=== PATIENT | female | born 1980 | race Caucasian/White ===

== ENCOUNTER 2017-05-13 18:07 | Outpatient (CLI) | payer OTHER ==
[~2017-05-13] VITALS: Ht 165.1 cm; Wt 101.0 kg
[~2017-05-13 18:07] MED LIST: NITR-58 PO; ONDA4TAB35 PO
[2017-05-13] MEDS ORDERED: PRENAT PO (18:23)
[2017-05-13] MEDS ORDERED: FER325 PO (18:23)
[2017-05-13 18:24] VITALS: BP 108/65; PULSE 88; RESP 18; Ht 165.1 cm; Wt 101.0 kg
--- NOTE | 2017-05-13 19:09 | RADRPT ---
PROCEDURE: US OB biophysical profile. CLINICAL INDICATION: Evaluate well-being TECHNIQUE: Multiple sonographic images of the pelvis were obtained. The images were reviewed on a PACS workstation. COMPARISON: None FINDINGS: There is a single viable intrauterine gestation. There is a normal amount of amniotic fluid with an SHELDON = 11.5 . Cardiac activity is present with 142 beats per minute There is a vertex presentation. The placenta is 5 ml. Biophysical profile: movement 2/2 tone 2/2. breathing 2/2 SHELDON 2/2 Total 04/14 IMPRESSION: 1. Normal biophysical profile of 04/14. 2. Single viable intrauterine gestation in cephalic presentation. 3. Fundal placenta without evidence of previa or abruption. RPTAT:AAJJ Physician Jarred Date Time Electronically viewed and signed by Physician Jarred on 05/13/2017 19:09 /
--- NOTE | 2017-05-13 19:48 | PN ---
Triage Information Date/Time Reason for visit: DFM Weeks of Gestation 37 weeks /Para Diabetes: none Hypertention: none Objective Vital Signs Date Time Temp Pulse Resp B/P Pulse Ox O2 Delivery O2 Flow Rate FiO2 05/13/17 18:24 99.1 88 18 108/65 97 Room Air Heart Rate: 130's Heart Rate Comments Category I Contractions: None Results/Medications Imaging Results BPP 8 SHELDON 11.5 Disposition: Discharge Assessment/Plan While being monitored, patient feels the baby move well. D/C home. NATALIYA MOFFETT MD May 13, 2017 19:48
--- NOTE | 2017-05-13 20:21 | TRIAGE ---
OB Triage Datetime Report Generated by CPN: 05/13/2017 20:20 Datetime: 05/13/2017 19:40 Stage of : OB Triage Datetime: 05/13/2017 18:53 Stage of : OB Triage Maternal Assessment Level of Consciousness: Fully Conscious Labor Evaluation Frequency: 1uc/hr Monitor Mode: External Duration (sec)2399: 50 Quality: Mild Resting Tone [place]: Relaxed Heart Rate FHR Baseline Rate: 135 Monitor Mode: External US Variability: Moderate 6-25 bpm Accelerations: 15X15 Decelerations: None Category: Category I Pain Assessment Pain Scale: 0 Pain Goal: 3 Vaginal Exam Membrane Status: Intact Vaginal Bleeding: None Datetime: 05/13/2017 18:21 Assessment Type: Triage Maternal Assessment Level of Consciousness: Fully Conscious DTR's/Clonus: DTRs 2+; No Clonus Headache: Denies Blurred Vision: No Respiratory Effort: Unlabored; Regular Rhythm; Equal Expansion Breath Sounds, Left: Clear and Equal Breath Sounds, Right: Clear and Equal Nausea/Vomiting: Denies RUQ Epigastric Pain: Denies Lower Extremities Edema: None Degree: None Upper Extremities Edema: None Degree: None Facial Edema: None Fall Risk Assessment History of Falling: (0) No Secondary Diagnosis: (0) No Ambulatory Aid: (0) Bedrest/Nurse Assist IV Therapy: (0) No Gait: (0) Normal/Bedrest/Immobile Mental Status: (0) Oriented to Own Ability Fall Score: 0 Fall Risk Score Definition: No Risk: No action required Datetime: 05/13/2017 18:20 Time of Arrival: 05/13/2017 17:49 EGA: 37.0 Arrived By: Ambulatory Arrived From: Office Chief Complaint: pt here for DFM Movement: Present Contractions: Denies/Absent Rupture of Membranes: Denies Vaginal Bleeding: None Vaginal Discharge: Denies Recent Sexual Intercouse: Denies Abdominal Trauma: Not Applicable Patient Complaints: None Provider Notified: BETINA Initial Plan: NST/BPP Datetime: 05/13/2017 18:13 Monitor Mode: External Monitor Mode: External US
== END 2017-05-13 20:00 | disposition home or self-care (01) ==
LOC: L-D 18:07 → OBT 18:07 → L-D 18:08 → OBT 20:00
PROVIDERS: ATTEND Obstetrics & Gynecology
DX: O36.8130 Decreased fetal movements, third trimester, not applicable or unspecified (principal); Z3A.37 37 weeks gestation of pregnancy
CPT/HCPCS: 76818; Z7500; G0463

== ENCOUNTER 2017-06-04 09:41 | Inpatient (IN) | payer OTHER ==
[~2017-06-04] VITALS: Ht 165.1 cm; Wt 103.9 kg
[~2017-06-04 09:41] MED LIST changes: +FER325 PO; -NITR-58 PO; -ONDA4TAB35 PO; +PRENAT PO
[2017-06-04 10:12] VITALS: Ht 165.1 cm; Wt 103.9 kg
[2017-06-04 10:13] VITALS: BP 110/70; PULSE 82; RESP 20
--- NOTE | 2017-06-04 11:50 | RADRPT ---
PROCEDURE: OB ultrasound for biophysical profile CLINICAL INDICATION: Post dates TECHNIQUE: Multiple sonographic images of the pelvis were obtained. Transabdominal views of the g ravid uterus are available for review. The images were reviewed on a PACS workstation. COMPARISON: None FINDINGS: breathing movement = 2/2 tone = 2/2 motion = 2/2 SHELDON = 2/2 SHELDON = 10.6 cm Single live intrauterine with cardiac activity of 144 bpm. position is cephal ic. The placenta is fundal. IMPRESSION: 1. Single live intrauterine gestation. 2. Biophysical profile = 8/8. 3. SHELDON = 10.6 cm. RPTAT: HH .Mikayla Marrero MD, MD Date Time Electronically viewed and signed by .Mikayla Marrero MD, on 06/04/2017 11:50 .G/
--- NOTE | 2017-06-04 11:52 | RADRPT ---
PROCEDURE: US OB. CLINICAL INDICATION: Post dates TECHNIQUE: Multiple sonographic images of the pelvis were obtained. Transabdominal imaging only w as performed. The images were reviewed on a PACS workstation. COMPARISON: No prior studies are available for comparison. FINDINGS: There is a single live intrauterine gestation. Cardiac activity is present with 143 beats per minut e. position is cephalic. Measurements were made in order to determine age. The results are as follows: BPD = 9.49 cm HC = 33.43 cm AC = 35.90 cm FL = 7.75 cm. Estimated gestational age of approximately 39 weeks 1 day. The estimated date of delivery is 06/10/2017. The EFW = 3785 g, 61.9 %ile. The placenta is fundal. There is no evidence for an abruption or placenta previa. IMPRESSION: 1. Single live intrauterine gestation of approximately 39 weeks 1 day, by ultrasound criteria. 2. The estimated date of delivery is 06/10/2017. 3. The estimated weight is 3785 g, 61.9 %ile. RPTAT: HH .Mikayla Marrero MD, Date Time Electronically viewed and signed by .Mikayla Marrero MD, on 06/04/2017 11:52 .G/
--- NOTE | 2017-06-04 15:23 | TRIAGE ---
OB Triage Datetime Report Generated by CPN: 06/04/2017 15:23 Datetime: 06/04/2017 15:08 Headache: Denies Blurred Vision: No RUQ Epigastric Pain: Denies Facial Edema: None Labor Evaluation Frequency: none Pattern: Normal: <= 5 Contractions in 10 Minutes Heart Rate FHR Baseline Rate: 140 FHR Baseline Changes: No Baseline Change Variability: Moderate 6-25 bpm Accelerations: 15X15 Decelerations: None Category: Category I Pain Presence: None/Denies Vaginal Exam Membrane Status: Intact Datetime: 06/04/2017 14:10 Labor Evaluation Frequency: none Pattern: Normal: <= 5 Contractions in 10 Minutes Heart Rate FHR Baseline Rate: 140 Monitor Mode: External US FHR Baseline Changes: No Baseline Change Variability: Moderate 6-25 bpm Accelerations: 15X15 Decelerations: None Category: Category I Pain Presence: None/Denies Datetime: 06/04/2017 12:30 Maternal Assessment Level of Consciousness: Fully Conscious DTR's/Clonus: DTRs 2+ Headache: Denies Blurred Vision: No Nausea/Vomiting: Denies RUQ Epigastric Pain: Denies Facial Edema: None Labor Evaluation Frequency: 0 Monitor Mode: External Duration (sec)2399: 0 Resting Tone [place]: Relaxed Heart Rate FHR Baseline Rate: 140 Monitor Mode: External US Variability: Moderate 6-25 bpm Accelerations: 15X15 Decelerations: Variable Category: Category II Pain Assessment Pain Scale: 0 Pain Presence: None/Denies Pain Type: N/A Pain Goal: 3 Vaginal Exam Membrane Status: Intact Datetime: 06/04/2017 11:30 Maternal Assessment Level of Consciousness: Fully Conscious DTR's/Clonus: DTRs 2+ Headache: Denies Blurred Vision: No Nausea/Vomiting: Denies RUQ Epigastric Pain: Denies Facial Edema: None Labor Evaluation Frequency: 0 Monitor Mode: External Duration (sec)2399: 0 Resting Tone [place]: Relaxed Heart Rate FHR Baseline Rate: 150 Monitor Mode: External US Variability: Moderate 6-25 bpm Accelerations: 15X15 Decelerations: Variable Category: Category I Pain Presence: None/Denies Datetime: 06/04/2017 10:30 Labor Evaluation Frequency: 10-15 Monitor Mode: External Duration (sec)2399: 5-10 Quality: Mild Resting Tone [place]: Relaxed Heart Rate FHR Baseline Rate: 145 Monitor Mode: External US Variability: Moderate 6-25 bpm Accelerations: 15X15 Decelerations: Variable Category: Category II Comments: GIVEN COLD WATER TO GET BABY TO MOVE Pain Presence: None/Denies Datetime: 06/04/2017 10:10 Time of Arrival: 06/04/2017 09:39 EGA: 40.1 Arrived By: Ambulatory Arrived From: Home Chief Complaint: POST DATES DR SENT FOR NST AND BPP Movement: Present Contractions: Denies/Absent Rupture of Membranes: Denies Vaginal Bleeding: None Vaginal Discharge: Denies Recent Sexual Intercouse: Denies Abdominal Trauma: Not Applicable Patient Complaints: None Time Provider Notified: 06/04/2017 09:39 Provider Notified: Delshad Initial Plan: NST, BPP, SHELDON, R/O INDUCTION Maternal Assessment Level of Consciousness: Fully Conscious DTR's/Clonus: DTRs 2+ Headache: Denies Blurred Vision: No Nausea/Vomiting: Denies RUQ Epigastric Pain: Denies Facial Edema: None Labor Evaluation Frequency: 0 Monitor Mode: External Resting Tone [place]: Relaxed Monitor Mode: External US Variability: Moderate 6-25 bpm Accelerations: 10X10 Decelerations: Variable Category: Category II Comments: pt here from clinic, overdue, wants nst and bpp, denies any history, last baby 7 yrs ago, last ate this a.m. at 8am, states "baby's been moving all over " Pain Assessment Pain Scale: 0 Pain Presence: None/Denies Pain Type: N/A Pain Goal: 0 Datetime: 05/13/2017 18:21 Fall Risk Assessment Fall Score: 0 Fall Risk Score Definition: No Risk: No action required Datetime: 05/13/2017 18:20 EGA: 37.0
[2017-06-04] MEDS ORDERED: OXYTOCIN 30 UNITS/LR 500 ML IV PRN (16:30)
[2017-06-04] MEDS ORDERED: BUTORPHANOL 2 MG INJ IV PRN (16:30)
[2017-06-04] MEDS ORDERED: OXYTOCIN 30 UNITS/LR 500 ML IV SCH ×2 (16:30)
[2017-06-04] MEDS ORDERED: IBUPROFEN 600 MG TAB PO PRN (16:30)
[2017-06-04] MEDS ORDERED: METHYLERGONOVINE 0.2 MG INJ IM PRN (16:30)
[2017-06-04] MEDS ORDERED: MISOPROSTOL 200 MCG TAB PR PRN (16:30)
[2017-06-04] MEDS ORDERED: LIDOCAINE 1% (MPF) 30 ML INJ INJ PRN (16:30)
[2017-06-04] MEDS ORDERED: CARBOPROST 250 MCG INJ IM PRN (16:30)
[2017-06-04] MEDS: LACTATED RINGER'S 1,000 ML IV SCH ×2 (16:40→22:12)
[2017-06-04] MEDS: MISOPROSTOL 25 MCG CAPSULE PO SCH ×2 (16:52→21:10)
[2017-06-04 17:32] LABS: BASOPHIL # 0.1 10^3/ul (0.0-0.1); BASOPHILS % 0.5 % (0.0-2.0); EOSINOPHILS # 0.3 10^3/ul (0.0-0.5); EOSINOPHILS % 1.9 % (0.0-7.0); HEMATOCRIT 38.1 % (37.0-47.0); HEMOGLOBIN 12.5 g/dl (12.0-16.0); LYMPHOCYTES # 1.9 10^3/ul (0.8-2.9); LYMPHOCYTES % 13.9 % (15.0-51.0); MEAN CORPUSCULAR HEMOGLOBIN 29.4 pg (29.0-33.0); MEAN CORPUSCULAR HGB CONC 32.8 g/dl (32.0-37.0); MEAN CORPUSCULAR VOLUME 89.6 fl (82.0-101.0); MEAN PLATELET VOLUME 9.2 fl (7.4-10.4); MONOCYTE # 1.2 10^3/ul (0.3-0.9); MONOCYTES % 8.8 % (0.0-11.0); NEUTROPHIL # 9.9 10^3/ul (1.6-7.5); PLATELET COUNT 285 10^3/UL (140-415); RED BLOOD COUNT 4.25 10^6/ul (4.20-5.40); RED CELL DISTRIBUTION WIDTH 16.6 % (11.5-14.5); WHITE BLOOD COUNT 13.5 10^3/ul (4.8-10.8)
[2017-06-04 17:49] LABS: INR 0.99; PROTIME 13.1 Sec (12.2-14.2)
[2017-06-04 17:50] LABS: PARTIAL THROMBOPLASTIN TIME 31.3 Sec (25.0-35.0)
--- NOTE | 2017-06-04 22:47 | HP ---
Date/Time of Note Date/Time of Note DATE: 06/04/17 TIME: 22:44 OB - History Hx of Present Chief Complaint: post date Estimated Due Date: Jun 03, 2017 : 6 Para: 2 Spontaneous : 3 Therapeutic : 0 Care: Good Care Ultrasounds: Normal mid trimester US Obstetrical Complications: None Medical Complications: None Past Family/Social History * Past Medical, Surgical, Family and Obstetric Histories reviewed from chart. GBS Status: Negative OB Admission Exam Vital Signs Vital Signs Vital Signs Date Time Temp Pulse Resp B/P Pulse Ox O2 Delivery O2 Flow Rate FiO2 06/04/17 10:13 98.4 82 20 110/70 Room Air Physical Exam HEENT: WNL Heart: Rhythm Normal Lungs: Clear, Equal Abdomen: WNL Extremities: Normal Reflexes: Normal Cervical Dilatation: None Effacement: 25% Station: -2 Membranes: Intact Heart Rate: 140's Accelerations: Accelerations Present Varibility: Moderate Last 72 hours Lab Results CBC & BMP 06/04/17 16:20 OB Assessment/Plan Reason for admission: induction of labor Plan: Induction Induction Method: per Misoprostol Protocol NATALIYA MOFFETT MD Jun 04, 2017 22:47
[2017-06-04] MEDS ORDERED: LACTATED RINGER'S 1,000 ML IV PRN (23:00)
[2017-06-05] MEDS: LACTATED RINGER'S 1,000 ML IV SCH (06:40)
--- NOTE | 2017-06-05 10:00 | LDN ---
Date/Time of Note Date/Time of Note DATE: 06/05/17 TIME: 09:59 Delivery Summary Placenta Delivered: Spontaneously Meconium: none Episiotomy: No Perineal laceration: 2 Laceration repair: 2nd degree perineal laceration repaired with 3-0 chromic and bilateral labial lacerations repaired with 4-0 chromic Anesthesia type: Local Estimated blood loss: 400 Sponge & Needle done & correct: Yes All needle counts correct: Yes Any foreign bodies felt in the: No Problems: Delivery Information Sex Sex: female Apgars 1 Minute: 9 5 Minute: 9 Suctioning Nose & mouth suctioned at sean: Yes Umbilical Cord Umbilical cord with: 3 Vessels Cord presentations: no nuchal cord Cord Blood was obtained: Yes SELINA HERRERA Jun 05, 2017 10:00
[2017-06-05 11:45] VITALS: BP 118/71; PULSE 65; RESP 18
[2017-06-05] MEDS ORDERED: LACTATED RINGER'S 1,000 ML IV* SCH (11:49)
[2017-06-05] MEDS ORDERED: DIBUCAINE 1% 30 GM OINT PR PRN (12:00)
[2017-06-05] MEDS ORDERED: CARBOPROST 250 MCG INJ IM PRN (12:00)
[2017-06-05] MEDS ORDERED: MISOPROSTOL 200 MCG TAB PR PRN (12:00)
[2017-06-05] MEDS ORDERED: BENZOCAINE 20% 56 ML SPRAY TOP PRN (12:00)
[2017-06-05] MEDS ORDERED: HYDROCODONE/APAP (5/325) TAB PO PRN (12:00)
[2017-06-05] MEDS ORDERED: OXYTOCIN 30 UNITS/LR 500 ML IV PRN (12:00)
[2017-06-05] MEDS: IBUPROFEN 600 MG TAB PO SCH ×2 (12:00→17:45)
[2017-06-05] MEDS ORDERED: ACETAMINOPHEN 325 MG TAB PO PRN (12:00)
[2017-06-05] MEDS ORDERED: METHYLERGONOVINE 0.2 MG INJ IM PRN (12:00)
[2017-06-05] MEDS ORDERED: WITCH HAZEL/GLYCERIN PAD PR PRN (12:00)
[2017-06-05 20:00] VITALS: BP 119/67; PULSE 78; RESP 18
[2017-06-05] MEDS: SENNA/DOCUSATE NA (8.6MG/50MG) TAB PO SCH (21:00)
[2017-06-06] VITALS: BP 97/50; PULSE 72; RESP 18
[2017-06-06 04:00] VITALS: BP 124/71; PULSE 78; RESP 18
[2017-06-06] MEDS: IBUPROFEN 600 MG TAB PO SCH ×5 (05:36→23:36)
[2017-06-06 08:30] VITALS: BP 98/52; PULSE 71; RESP 16
[2017-06-06 08:45] LABS: BASOPHILS % 0.2 % (0.0-2.0); EOSINOPHILS # 0.3 10^3/ul (0.0-0.5); EOSINOPHILS % 1.8 % (0.0-7.0); HEMATOCRIT 30.9 % (37.0-47.0); LYMPHOCYTES # 2.8 10^3/ul (0.8-2.9); LYMPHOCYTES % 19.2 % (15.0-51.0); MEAN CORPUSCULAR HEMOGLOBIN 28.8 pg (29.0-33.0); MEAN CORPUSCULAR HGB CONC 32.4 g/dl (32.0-37.0); MEAN PLATELET VOLUME 8.7 fl (7.4-10.4); MONOCYTE # 1.4 10^3/ul (0.3-0.9); MONOCYTES % 9.7 % (0.0-11.0); NEUTROPHIL # 9.8 10^3/ul (1.6-7.5); NEUTROPHILS % 67.1 % (39.0-77.0); PLATELET COUNT 223 10^3/UL (140-415); RED BLOOD COUNT 3.47 10^6/ul (4.20-5.40); RED CELL DISTRIBUTION WIDTH 16.7 % (11.5-14.5); WHITE BLOOD COUNT 14.6 10^3/ul (4.8-10.8)
[2017-06-06] MEDS: SENNA/DOCUSATE NA (8.6MG/50MG) TAB PO SCH ×2 (09:00→21:46)
[2017-06-06] MEDS ORDERED: INFLUENZA VIRUS VACCINE 0.5 ML SYG IM* ONE (14:00)
[2017-06-06 16:00] VITALS: BP 107/59; PULSE 87
[2017-06-06 20:15] VITALS: BP 98/58; PULSE 79; RESP 18
--- NOTE | 2017-06-06 21:17 | PN ---
Date/Time of Note Date/Time of Note DATE: 06/06/17 TIME: 21:15 OB Subjective Subjective Subjective June 06, 2017 Post day 1 Doing Well Afebrile Ambulatory Chest Clear Breasts are soft , Nipples are intact Abdomen is soft Fundus is firm Moderate amount of lochia 2ed degree laceration of perineum is healing No calf tenderness Laboratory Tests Test 06/06/17 08:35 White Blood Count 14.610^3/ul Red Blood Count 3.4710^6/ul Hemoglobin 10.0g/dl Hematocrit 30.9% Mean Corpuscular Volume 89.0fl Mean Corpuscular Hemoglobin 28.8pg Mean Corpuscular Hemoglobin Concent 32.4g/dl Red Cell Distribution Width 16.7% Platelet Count 85691^3/UL Mean Platelet Volume 8.7fl Neutrophils % 67.1% Lymphocytes % 19.2% Monocytes % 9.7% Eosinophils % 1.8% Basophils % 0.2% Nucleated Red Blood Cells % 0.0/100WBC Neutrophils # 9.810^3/ul Lymphocytes # 2.810^3/ul Monocytes # 1.410^3/ul Eosinophils # 0.310^3/ul Basophils # 0.010^3/ul Nucleated Red Blood Cells # 0.010^3/ul Current Medications Medications (Trade) Dose Ordered Sig/Jani Route PRN Reason Start Time Stop Time Status Last Admin Dose Admin Lactated Ringer's (Lr) 1,000 ml @ 125 mls/hr Q8H IV 06/04/17 16:04 06/05/17 11:53 DC 06/05/17 06:40 Misoprostol (Cytotec 25 Mcg Capsule) 50 mcg Q4 PO 06/04/17 17:00 06/05/17 00:32 DC 06/04/17 21:10 Butorphanol Tartrate (Stadol) 2 mg Q2H PRN IV PAIN 06/04/17 16:30 06/05/17 11:53 DC Lidocaine 30 ml 30 ml ONCE PRN INJ EPISIOTOMY/TEARING 06/04/17 16:30 06/05/17 11:53 DC Oxytocin/Lactated Ringer's 500 ml @ 125 mls/hr ONCE -MAY REPEAT X1 IV 06/04/17 16:30 06/05/17 11:53 DC 06/05/17 10:16 Oxytocin/Lactated Ringer's 500 ml @ 125 mls/hr ONCE IV 06/04/17 16:30 06/05/17 11:53 DC 06/05/17 10:17 Ibuprofen 600 mg 600 mg ONCE PRN PO Mild Pain (Pain Score 1-3) 06/04/17 16:30 06/05/17 11:53 DC 06/05/17 11:07 Lactated Ringer's 1,000 ml @ 2,000 mls/hr Q30M PRN IV PRE-EPIDURAL BOLUS 06/04/17 23:00 06/05/17 11:53 DC Oxytocin/Lactated Ringer's 500 ml @ 0 mls/hr ONCE PRN IV For Hemorrhage Management 06/04/17 16:30 06/05/17 11:53 DC Methylergonovine Maleate (Methergine) 0.2 mg ONCE PRN IM VAGINAL BLEEDING 06/04/17 16:30 06/05/17 11:53 DC Carboprost Tromethamine (Hemabate) 250 mcg ONCE PRN IM VAGINAL BLEEDING 06/04/17 16:30 06/05/17 11:53 DC Misoprostol 1000 mcg 1,000 mcg ONCE PRN DC VAGINAL BLEEDING 06/04/17 16:30 06/05/17 11:53 DC Lactated Ringer's (Lr) 1,000 ml @ 125 mls/hr Q8H IV* 06/05/17 11:49 Ibuprofen (Motrin) 600 mg Q6 PO 06/05/17 12:00 06/06/17 17:58 Acetaminophen (Tylenol Tab) 650 mg Q4H PRN PO PAIN LEVEL 1-5 06/05/17 12:00 Acetaminophen/ Hydrocodone Bitart (Sunray (5/325)) 1 tab Q4H PRN PO PAIN LEVEL 1-5 06/05/17 12:00 Senna/Docusate Sodium (Senokot-S) 1 tab BID PO 06/05/17 21:00 Witch Sangeetha/ Glycerin (Tucks Pads) 1 pad BEDSIDE MEDICATION PRN DC HEMORRHOID/EPISIOTMY PAIN 06/05/17 12:00 06/05/17 13:05 Benzocaine (Dermoplast Coats) 1 spray BEDSIDE MEDICATION PRN TOP HEMORRHOID/EPISIOTMY PAIN 06/05/17 12:00 06/05/17 13:05 Dibucaine (Nupercainal) 1 applic BEDSIDE MEDICATION PRN DC HEMORRHOID/EPISIOTMY PAIN 06/05/17 12:00 Diphtheria/ Tetanus/Acell Pertussis 0.5 ml 0.5 ml ONCE ONCE IM* 06/07/17 09:00 06/07/17 09:01 Oxytocin/Lactated Ringer's 500 ml @ 0 mls/hr ONCE PRN IV For Hemorrhage Management 06/05/17 12:00 Methylergonovine Maleate (Methergine) 0.2 mg ONCE PRN IM VAGINAL BLEEDING 06/05/17 12:00 Carboprost Tromethamine (Hemabate) 250 mcg ONCE PRN IM VAGINAL BLEEDING 06/05/17 12:00 Misoprostol (Cytotec) 1,000 mcg ONCE PRN DC VAGINAL BLEEDING 06/05/17 12:00 Influenza Virus Vaccine (Fluzone) 0.5 ml ONCE ONCE IM* 06/06/17 14:00 06/06/17 14:01 DC 06/06/17 12:21 No ankle edema New born is doing well, Breast feeding SANA KRUSE MD Jun 06, 2017 21:17
[2017-06-07 04:15] VITALS: BP 108/57; PULSE 77; RESP 18
[2017-06-07] MEDS: IBUPROFEN 600 MG TAB PO SCH ×2 (05:39→11:28)
[2017-06-07 08:30] VITALS: BP 113/67; PULSE 71; RESP 18
[2017-06-07] MEDS ORDERED: DIPHTH/TET/ACEL PERTUSS (ADULT) 0.5 ML VIAL IM* ONE (09:00)
[2017-06-07] MEDS: SENNA/DOCUSATE NA (8.6MG/50MG) TAB PO SCH (09:00)
--- NOTE | 2017-06-07 15:00 | DS ---
Date/Time of Note Date/Time of Note DATE: 06/07/17 TIME: 15:00 Obstetrical Discharge Record Final Diagnosis Final Diagnosis: Term delivered Vaginal Delivery Obstetrical Delivery: Spontaneous Complications Induction: Yes Condition on Discharge Physical Assessment Voiding: Yes Bowel Movement: Yes Breast: Soft, non-tender, Filling Fundus: Firm Calf Tenderness: No Patient Condition: Stable NATALIYA MOFFETT MD Jun 07, 2017 15:00
== END 2017-06-07 17:00 | disposition home or self-care (01) | DRG 775 ==
LOC: OBT 09:41 → L-D 09:41 → OBT 15:08 → L-D 15:32 → PP1 06-05 11:41
PROVIDERS: ADMIT Obstetrics & Gynecology; ATTEND Obstetrics & Gynecology
PROC: 10E0XZZ Delivery of Products of Conception, External Approach (ICD-10-PCS; principal; 2017-06-05)
PROC: 0KQM0ZZ Repair Perineum Muscle, Open Approach (ICD-10-PCS; 2017-06-05)
DX: O70.1 Second degree perineal laceration during delivery (principal); Z37.0 Single live birth; Z3A.40 40 weeks gestation of pregnancy
CPT/HCPCS: 76815; 76818; 85025; 85610; 85730; 86592; 86900; 86901; 90686; 90715; G0463; J2590; J7120

== ENCOUNTER 2019-02-02 17:47 | Outpatient (CLI) | payer OTHER ==
[~2019-02-02] VITALS: Ht 165.1 cm; Wt 103.2 kg
[2019-02-02 17:58] VITALS: BP 120/69; PULSE 81; RESP 18
[2019-02-02 17:59] VITALS: Ht 165.1 cm; Wt 103.2 kg
--- NOTE | 2019-02-02 20:23 | PN ---
Triage Information Date/Time Reason for visit: antepartum testing Weeks of Gestation 35 weeks /Para Diabetes: gestational Diabetes management: diet controlled Hypertention: none Objective Vital Signs Date Temp Pulse Resp B/P (MAP) Pulse Ox O2 O2 Flow FiO2 Time Delivery Rate 02/02/19 98.3 81 18 120/69 Room Air 17:58 (86) Heart Rate: 120's Heart Rate Comments Reactive Results/Medications Results 24 hrs Laboratory Tests Test 02/02/19 18:03 Bedside Glucose 64 L Imaging Results BPP 04/14 Disposition: Discharge Assessment/Plan Follow up antepartum testing on 02/04/2019. NATALIYA MOFFETT MD February 02, 2019 20:23
--- NOTE | 2019-02-02 20:55 | TRIAGE ---
OB Triage Datetime Report Generated by CPN: 02/02/2019 20:55 Datetime: 02/02/2019 20:18 Labor Evaluation Frequency: OCCASIONAL Monitor Mode: External Duration (sec)2399: 60-90 Quality: Mild Resting Tone [place]: Relaxed Contraction Comments: PT DENIES FEELING UC'S Contraction Comments: TOCO REMOVED Heart Rate FHR Baseline Rate: 135 Monitor Mode: External US Variability: Moderate 6-25 bpm Accelerations: 15X15 Decelerations: None Category: Category I Comments: US REMOVED Datetime: 02/02/2019 20:00 Labor Evaluation Frequency: OCCASIONAL Monitor Mode: External Duration (sec)2399: 50-90 Quality: Mild Resting Tone [place]: Relaxed Contraction Comments: PT DENIES FEELING UC'S Heart Rate FHR Baseline Rate: 135 Monitor Mode: External US Variability: Moderate 6-25 bpm Accelerations: 15X15 Decelerations: None Category: Category I Datetime: 02/02/2019 17:54 Stage of : OB Triage Assessment Type: Triage Time of Arrival: 02/02/2019 17:31 EGA: 35.2 Arrived By: Ambulatory Arrived From: Office Chief Complaint: PT. SENT IN FOR NST/BPP FOR GDM Movement: Present Contractions: Denies/Absent Rupture of Membranes: Denies Vaginal Bleeding: None Vaginal Discharge: Denies Recent Sexual Intercouse: Denies Abdominal Trauma: Not Applicable Patient Complaints: None Initial Plan: NST/BPP/BG Maternal Assessment Level of Consciousness: Fully Conscious DTR's/Clonus: DTRs 2+; No Clonus Headache: Denies Blurred Vision: No Respiratory Effort: Unlabored; Regular Rhythm; Equal Expansion Breath Sounds, Left: Clear and Equal Breath Sounds, Right: Clear and Equal Nausea/Vomiting: Denies RUQ Epigastric Pain: Denies Lower Extremities Edema: None Degree: None Upper Extremities Edema: None Degree: None Facial Edema: None Fall Risk Assessment History of Falling: (0) No Secondary Diagnosis: (0) No Ambulatory Aid: (0) Bedrest/Nurse Assist IV Therapy: (0) No Gait: (0) Normal/Bedrest/Immobile Mental Status: (0) Oriented to Own Ability Fall Score: 0 Fall Risk Score Definition: No Risk: No action required Datetime: 02/02/2019 17:52 Monitor Mode: External Monitor Mode: External US
== END 2019-02-02 20:27 | disposition home or self-care (01) ==
LOC: OBT 17:47 → L-D 17:48 → OBT 20:27
PROVIDERS: ATTEND Obstetrics & Gynecology
DX: O24.419 Gestational diabetes mellitus in pregnancy, unspecified control (principal); O09.523 Supervision of elderly multigravida, third trimester; Z3A.35 35 weeks gestation of pregnancy
CPT/HCPCS: 76818; 82962; Z7500; G0463

== ENCOUNTER 2019-02-04 08:57 | Outpatient (CLI) | payer OTHER ==
[~2019-02-04] VITALS: Ht 165.1 cm; Wt 103.3 kg
[2019-02-04 09:12] VITALS: Ht 165.1 cm; Wt 103.3 kg
[2019-02-04 09:13] VITALS: BP 107/63; PULSE 83
--- NOTE | 2019-02-04 11:11 | TRIAGE ---
OB Triage Datetime Report Generated by CPN: 02/04/2019 11:11 Datetime: 02/04/2019 10:18 Stage of : OB Triage Datetime: 02/04/2019 10:09 Stage of : OB Triage Datetime: 02/04/2019 09:54 Labor Evaluation Frequency: X1 Monitor Mode: External Duration (sec)2399: 50 Quality: Mild Pattern: Normal: <= 5 Contractions in 10 Minutes Resting Tone [place]: Relaxed Heart Rate FHR Baseline Rate: 135 Monitor Mode: External US Variability: Moderate 6-25 bpm Accelerations: 10X10 Decelerations: None Category: Category I Pain Assessment Pain Scale: 0 Pain Presence: None/Denies Pain Type: N/A Pain Goal: 3 Pain Relief Measures: Comfort Measures Datetime: 02/04/2019 09:05 Stage of : OB Triage Assessment Type: Triage Maternal Assessment Level of Consciousness: Fully Conscious DTR's/Clonus: DTRs 2+; No Clonus Headache: Denies Blurred Vision: No Respiratory Effort: Unlabored; Regular Rhythm; Equal Expansion Breath Sounds, Left: Clear and Equal Breath Sounds, Right: Clear and Equal Nausea/Vomiting: Denies RUQ Epigastric Pain: Denies Facial Edema: None Temperature Route: Axillary Bedside Blood Glucose: 132 Fall Risk Assessment History of Falling: (0) No Secondary Diagnosis: (0) No Ambulatory Aid: (0) Bedrest/Nurse Assist IV Therapy: (0) No Gait: (0) Normal/Bedrest/Immobile Mental Status: (0) Oriented to Own Ability Fall Score: 0 Fall Risk Score Definition: No Risk: No action required Labor Evaluation Frequency: 0 Monitor Mode: External Pattern: Normal: <= 5 Contractions in 10 Minutes Resting Tone [place]: Relaxed Heart Rate FHR Baseline Rate: 135 Monitor Mode: External US Pain Assessment Pain Scale: 0 Pain Presence: None/Denies Pain Type: N/A Pain Goal: 3 Pain Relief Measures: Comfort Measures Datetime: 02/04/2019 09:04 Time of Arrival: 02/04/2019 08:50 EGA: 35.4 Arrived By: Ambulatory Arrived From: Home Chief Complaint: BIWEEKLY NST/BPP GDM, DENIES LEAKING, BLEEDING OR UC'S Movement: Present Contractions: Denies/Absent Rupture of Membranes: Denies Vaginal Bleeding: None Vaginal Discharge: Denies Recent Sexual Intercouse: Denies Abdominal Trauma: Not Applicable Patient Complaints: None Time Provider Notified: 02/04/2019 10:09 Provider Notified: DELSHAD Initial Plan: MONITOR, BPP Datetime: 02/02/2019 17:54 EGA: 35.2 Fall Score: 0 Fall Risk Score Definition: No Risk: No action required
--- NOTE | 2019-02-07 04:26 | PN ---
Triage Information Date/Time late entry for service rendered on 02/04/19 Reason for visit: NST and SHELDON, SHELDON on 02/02/19 was 9.0 Weeks of Gestation 35w4d /Para Diabetes: gestational Diabetes management: diet controlled Hypertention: none Objective Vital Signs Date Temp Pulse Resp B/P (MAP) Pulse Ox O2 O2 Flow FiO2 Time Delivery Rate 02/04/19 98.0 83 107/63 09:13 (78) Heart Rate: 150's Heart Rate Comments CAT I Contractions: None Results/Medications Imaging Results BPP 8/8 SHELDON 10.1 Disposition: Discharge Assessment/Plan A IUP 35w4d A1DM P RTH biweekly antepartum test NINO SMITH MD Feb 07, 2019 04:26
== END 2019-02-04 10:30 | disposition home or self-care (01) ==
LOC: OBT 08:57 → L-D 09:01 → OBT 10:30
PROVIDERS: ATTEND Obstetrics & Gynecology
DX: O24.419 Gestational diabetes mellitus in pregnancy, unspecified control (principal); O09.523 Supervision of elderly multigravida, third trimester; Z3A.35 35 weeks gestation of pregnancy
CPT/HCPCS: 76818; 82962; Z7500; G0463

== ENCOUNTER 2019-02-07 09:02 | Outpatient (CLI) | payer OTHER ==
[~2019-02-07] VITALS: Ht 165.1 cm; Wt 103.8 kg
[2019-02-07 09:15] VITALS: BP 101/61; PULSE 83; RESP 19; Ht 165.1 cm; Wt 103.8 kg
--- NOTE | 2019-02-07 10:43 | TRIAGE ---
OB Triage Datetime Report Generated by CPN: 02/07/2019 10:43 Datetime: 02/07/2019 09:57 Labor Evaluation Frequency: occas Monitor Mode: External Duration (sec)2399: 60-80 Quality: Mild Pattern: Normal: <= 5 Contractions in 10 Minutes Resting Tone [place]: Relaxed Heart Rate FHR Baseline Rate: 135 Monitor Mode: External US FHR Baseline Changes: No Baseline Change Variability: Moderate 6-25 bpm Accelerations: 15X15 Decelerations: None Category: Category I Datetime: 02/07/2019 09:20 Assessment Type: Triage Maternal Assessment Level of Consciousness: Fully Conscious DTR's/Clonus: DTRs 2+; No Clonus Headache: Denies Blurred Vision: No Respiratory Effort: Unlabored; Regular Rhythm; Equal Expansion Breath Sounds, Left: Clear and Equal Breath Sounds, Right: Clear and Equal Nausea/Vomiting: Denies RUQ Epigastric Pain: Denies Lower Extremities Edema: None Degree: None Upper Extremities Edema: None Degree: None Facial Edema: None Fall Risk Assessment History of Falling: (0) No Secondary Diagnosis: (0) No Ambulatory Aid: (0) Bedrest/Nurse Assist IV Therapy: (0) No Gait: (0) Normal/Bedrest/Immobile Mental Status: (0) Oriented to Own Ability Fall Score: 0 Fall Risk Score Definition: No Risk: No action required Labor Evaluation Frequency: 0 Monitor Mode: External Pattern: Normal: <= 5 Contractions in 10 Minutes Resting Tone [place]: Relaxed Heart Rate FHR Baseline Rate: 135 Monitor Mode: External US Variability: Moderate 6-25 bpm Accelerations: 15X15 Decelerations: None Category: Category I Datetime: 02/07/2019 09:19 Time of Arrival: 02/07/2019 08:56 EGA: 36.0 Arrived By: Ambulatory Arrived From: Home Chief Complaint: GDM Movement: Present Contractions: Denies/Absent Rupture of Membranes: Denies Vaginal Bleeding: None Vaginal Discharge: Denies Recent Sexual Intercouse: Denies Abdominal Trauma: Not Applicable Patient Complaints: Other Time Provider Notified: 02/07/2019 10:28 Provider Notified: dr scott Initial Plan: NST Datetime: 02/04/2019 09:05 Fall Score: 0 Fall Risk Score Definition: No Risk: No action required Datetime: 02/04/2019 09:04 EGA: 35.4 Datetime: 02/02/2019 17:54 EGA: 35.2 Fall Score: 0 Fall Risk Score Definition: No Risk: No action required
--- NOTE | 2019-02-07 15:54 | PN ---
Triage Information Date/Time Reason for visit: Patient here for NST and BPP Weeks of Gestation Patient is a 38-year-old 6 para 3 at 36 weeks of gestation with estimated date of delivery March 07, 2019 Patient is gestational diabetic diet controlled here for NST and BPP She reports positive movement, denies vaginal bleeding and leaking fluid, denies uterine contractions /Para 6 para 3 Diabetes: gestational (GDM A1) Diabetes management: diet controlled Hypertention: none Objective Vital Signs Date Temp Pulse Resp B/P (MAP) Pulse Ox O2 O2 Flow FiO2 Time Delivery Rate 02/07/19 98.0 83 19 101/61 Room Air 09:15 (74) Heart Rate: 140's Heart Rate Comments heart rate tracing category 1 Contractions: None Results/Medications Imaging Results PROCEDURE: US OB. CLINICAL INDICATION: Size and dates , gestational diabetes TECHNIQUE: Multiple sonographic images of the pelvis and gravid uterus were o btained. The images were reviewed on a PACS workstation. COMPARISON: US PELVIS 02/04/2019 FINDINGS: Gestation: Single live intrauterine gestation. Cardiac activity: 165 beats per minute. Presentation: Vertex. Placenta: Location: Left lateral Appearance: No previa or abruption. Measurements: BPD = 8.9 cm, 35 weeks and 6 days HC = 32 cm, 36 weeks and 0 days AC = 33.2 cm, 37 weeks and 1 day FL = 7.0 cm, 36 weeks and 0 days Gestational Age: AUA estimated gestational age: 36 weeks 2 days LMP estimated gestational age: 36 weeks 0 days AUA estimated date of delivery: 03/05/19 The EFW = 2978 g, 68%ile based on LMP age. RPTAT: AA IMPRESSION: Single live intrauterine gestation of 36 weeks 2 days by ultrasound criteria. .Fausto Braden MD, MD Date Time Electronically viewed and signed by .Fausto Braden MD, on 02/07/2019 10:14 .S/ CC: HERBERT ESPARZA MD [phone] PROCEDURE: US OB biophysical profile. CLINICAL INDICATION: decreased movements, gestational diabetes TECHNIQUE: Multiple sonographic images of the pelvis were obtained. The images were reviewed on a PACS workstation. COMPARISON: US PELVIS 02/04/2019 FINDINGS: There is a single live intrauterine gestation. Cardiac activity is present with 166 beats per minute. There is a vertex presentation. The placenta is left lateral. There is no evidence of placental abruption. SHELDON = 9.2 cm. Biophysical profile: movement 2/2 tone 2/2. breathing 2/2 SHELDON 2/2 Total 04/14 RPTAT: AA . IMPRESSION: Normal biophysical profile. . .Fausto Braden MD, MD Date Time Electronically viewed and signed by .Fausto Braden MD, MD on 02/07/2019 10:15 .S/ CC: NATALIYA MOFFETT MD [phone] Disposition: Discharge Assessment/Plan kick count instructions were given Labor precautions were given Patient instructed to return in 48 hours for repeat NST and BPP Patient instructed to follow-up with [facility] in 1 to 2 days HERBERT ESPARZA MD Feb 07, 2019 15:54
== END 2019-02-07 10:35 | disposition home or self-care (01) ==
LOC: OBT 09:02 → L-D 09:02 → OBT 10:35
PROVIDERS: ATTEND Obstetrics & Gynecology
DX: O36.8330 Maternal care for abnormalities of the fetal heart rate or rhythm, third trimester, not applicable or unspecified (principal); O24.419 Gestational diabetes mellitus in pregnancy, unspecified control; O09.523 Supervision of elderly multigravida, third trimester; Z3A.36 36 weeks gestation of pregnancy
CPT/HCPCS: 76815; 76818; Z7500; G0463

== ENCOUNTER 2019-02-10 08:58 | Outpatient (CLI) | payer OTHER ==
[~2019-02-10] VITALS: Ht 165.1 cm; Wt 104.9 kg
[2019-02-10 09:06] VITALS: Ht 165.1 cm; Wt 104.9 kg
[2019-02-10 09:07] VITALS: BP 112/56
--- NOTE | 2019-02-10 10:45 | TRIAGE ---
OB Triage Datetime Report Generated by CPN: 02/10/2019 10:45 Datetime: 02/10/2019 09:11 EGA: 36.3 Datetime: 02/10/2019 09:10 Stage of : OB Triage Assessment Type: Triage Maternal Assessment Level of Consciousness: Fully Conscious DTR's/Clonus: DTRs 2+; No Clonus Headache: Denies Blurred Vision: No Respiratory Effort: Unlabored; Regular Rhythm; Equal Expansion Breath Sounds, Left: Clear and Equal Breath Sounds, Right: Clear and Equal Nausea/Vomiting: Denies RUQ Epigastric Pain: Denies Lower Extremities Edema: None Degree: None Upper Extremities Edema: None Degree: None Facial Edema: None Fall Risk Assessment History of Falling: (0) No Secondary Diagnosis: (0) No Ambulatory Aid: (0) Bedrest/Nurse Assist IV Therapy: (0) No Gait: (0) Normal/Bedrest/Immobile Mental Status: (0) Oriented to Own Ability Fall Score: 0 Fall Risk Score Definition: No Risk: No action required Pain Assessment Pain Scale: 0 Pain Presence: None/Denies Pain Type: N/A Datetime: 02/10/2019 09:08 Time of Arrival: 02/10/2019 08:47 EGA: 36.3 Arrived By: Ambulatory Arrived From: Home Chief Complaint: nst bpp f/up for gdm Movement: Present Contractions: Denies/Absent Rupture of Membranes: Denies Vaginal Bleeding: None Vaginal Discharge: Denies Recent Sexual Intercouse: Denies Abdominal Trauma: Not Applicable Patient Complaints: None Time Provider Notified: 02/10/2019 10:35 Provider Notified: dr. scott Initial Plan: nst bpp Datetime: 02/07/2019 09:20 Fall Score: 0 Fall Risk Score Definition: No Risk: No action required Datetime: 02/07/2019 09:19 EGA: 36.0 Datetime: 02/04/2019 09:05 Fall Score: 0 Fall Risk Score Definition: No Risk: No action required Datetime: 02/04/2019 09:04 EGA: 35.4 Datetime: 02/02/2019 17:54 EGA: 35.2 Fall Score: 0 Fall Risk Score Definition: No Risk: No action required
--- NOTE | 2019-02-26 12:47 | PN ---
Triage Information Date/Time Date of service 02/10/2019 Reason for visit: antepartum testing Weeks of Gestation 36 weeks /Para Diabetes: gestational Diabetes management: diet controlled Hypertention: none Objective Heart Rate: 120's Heart Rate Comments Reactive Results/Medications Imaging Results [facility] 04/14 Disposition: Discharge NATALIYA MOFFETT MD Feb 26, 2019 12:47
== END 2019-02-10 10:50 | disposition home or self-care (01) ==
LOC: OBT 08:58 → L-D 09:02 → OBT 10:50
PROVIDERS: ATTEND Obstetrics & Gynecology
DX: O24.419 Gestational diabetes mellitus in pregnancy, unspecified control (principal); O09.523 Supervision of elderly multigravida, third trimester; Z3A.36 36 weeks gestation of pregnancy
CPT/HCPCS: 76818; Z7500; G0463

== ENCOUNTER 2019-03-06 13:30 | Inpatient (IN) | payer OTHER ==
[~2019-03-06] VITALS: Ht 165.1 cm; Wt 107.4 kg
[2019-03-06 14:11] VITALS: BMI 39.4
[2019-03-06] MEDS ORDERED: LACTATED RINGER'S 1,000 ML IV PRN (14:13)
[2019-03-06 14:24] VITALS: Ht 165.1 cm; Wt 107.4 kg
[2019-03-06 14:26] VITALS: BP 117/68; PULSE 79; RESP 18
[2019-03-06] MEDS ORDERED: OXYTOCIN 30 UNITS/LR 500 ML IV SCH ×3 (14:30→16:30)
[2019-03-06] MEDS ORDERED: MISOPROSTOL 200 MCG TAB PR PRN (14:30)
[2019-03-06] MEDS ORDERED: METHYLERGONOVINE 0.2 MG INJ IM PRN (14:30)
[2019-03-06] MEDS ORDERED: OXYTOCIN 30 UNITS/LR 500 ML IV PRN (14:30)
[2019-03-06] MEDS ORDERED: CARBOPROST 250 MCG INJ IM PRN (14:30)
[2019-03-06] MEDS ORDERED: LIDOCAINE 1% (MPF) 30 ML INJ INJ PRN (14:30)
[2019-03-06] MEDS: LACTATED RINGER'S 1,000 ML IV SCH ×2 (15:01→17:17)
--- NOTE | 2019-03-06 20:13 | HP ---
Date/Time of Note Date/Time of Note DATE: 03/06/19 TIME: 20:08 OB - History Hx of Present Chief Complaint: induction of labor Estimated Due Date: Mar 07, 2019 : 7 Para: 3 Spontaneous : 3 Therapeutic : 1 Care: Good Care Ultrasounds: Normal mid trimester US Obstetrical Complications: Gestational Diabetes Medical Complications: None Past Family/Social History * Past Medical, Surgical, Family and Obstetric Histories reviewed from chart. GBS Status: Negative OB Admission Exam Vital Signs Vital Signs Vital Signs Date Temp Pulse Resp B/P (MAP) Pulse Ox O2 O2 Flow FiO2 Time Delivery Rate 03/06/19 97.9 79 18 117/68 Room Air 14:26 (84) Physical Exam HEENT: WNL Heart: Rhythm Normal Lungs: Clear, Equal Abdomen: WNL Extremities: Normal Reflexes: Normal Cervical Dilatation: 2cm Effacement: 50% Station: -1 Membranes: Intact Heart Rate: 130's Accelerations: Accelerations Present Decelerations: No Decelerations Varibility: Moderate Last 72 hourBlood Glucose Bedside Glucose - 72 Hours Test 03/06/19 19:37 Bedside Glucose 115 mg/dL (70-220) Last 72 hours Lab Results CBC & BMP 03/06/19 14:55 OB Assessment/Plan Reason for admission: induction of labor Plan: Induction Induction Method: per Pitocin Protocol NATALIYA MOFFETT MD Mar 06, 2019 20:13
[2019-03-06] MEDS ORDERED: FENTAnyl 2MCG/ML-ROPIV 0.2% 100 ML ONE (20:35)
--- NOTE | 2019-03-06 20:44 | PREAC ---
Date/Time of Note Date/Time of Note DATE: 03/06/19 TIME: 20:43 Anesthesia Eval and Record Evaluation Time Pre-Procedure Interview DATE: 03/06/19 TIME: 20:43 Age 38 Sex female NPO: 8 hrs Preoperative diagnosis Labor Pain Planned procedure Labor Epidural Past Medical History Past Medical History: Includes : : (5), Para: (3), Gestational age: (39), Gestational diabetes Surgery & Anesthesia Issues No known issue Meds Anticoagulation: No Beta Richard within 24 hr: No Reason Beta Richard not given: Pt. not on B-Richard Reported Medications Ferrous Sulfate* (Ferrous Sulfate*) 325 Mg Tabec, 325 MG PO DAILY, TAB 05/13/17 Multivit/Min/Fol Ac/Iron/Pren* ( S*) 1 Tab Tab, 1 TAB PO DAILY, TAB 05/13/17 Current Medications Lactated Ringer's 1,000 ml @ 125 mls/hr Q8H IV Last administered on 03/06/19at 17:17; Admin Dose 125 MLS/HR; Start 03/06/19 at 14:13 Lidocaine (Xylocaine 1% (Mpf)) 30 ml ONCE PRN INJ .EPISIOTOMY; Start 03/06/19 at 14:30 Oxytocin/Lactated Ringer's 500 ml @ 500 mls/hr ONCE POST IV ; Start 03/06/19 at 14:30 Oxytocin/Lactated Ringer's 500 ml @ 125 mls/hr POST IV ; Start 03/06/19 at 14:30 Lactated Ringer's 1,000 ml @ 2,000 mls/hr Q30M PRN IV .ANESTHESIA Last administered on 03/06/19at 20:24; Admin Dose 2,000 MLS/HR; Start 03/06/19 at 14:13 Oxytocin/Lactated Ringer's 500 ml @ 0 mls/hr ONCE PRN IV .VAGINAL BLEEDING Last administered on 03/06/19at 17:28; Admin Dose 1 MLS/HR; Start 03/06/19 at 14:30 Methylergonovine Maleate (Methergine) 0.2 mg ONCE PRN IM .VAGINAL BLEEDING; Start 03/06/19 at 14:30 Carboprost Tromethamine (Hemabate) 250 mcg ONCE PRN IM .VAGINAL BLEEDING; Start 03/06/19 at 14:30 Misoprostol (Cytotec) 1,000 mcg ONCE PRN CA .VAGINAL BLEEDING; Start 03/06/19 at 14:30 Oxytocin/Lactated Ringer's 500 ml @ 0 mls/hr FOR INDUCTION IV ; Start 03/06/19 at 16:30 Meds reviewed: Yes Allergies Coded Allergies: No Known Drug Allergies (Verified Allergy, Unknown, 02/10/19) Allergies Reviewed: Yes Labs/Studies Labs Reviewed: Reviewed by anesthesiologist Result Diagram: 03/06/19 1455 03/06/19 1455 Laboratory Tests 03/06/19 14:55 Blood Bank Test 03/06/19 14:55 Antibody Screen NEGATIVE Blood Type A POSITIVE Rh Immune Globulin Candidate NO test: Positive Studies: ECG (n/a), CXR (n/a) Pre-procedure Exam Last vitals Vital Signs Date Temp Pulse Resp B/P (MAP) Pulse Ox O2 O2 Flow FiO2 Time Delivery Rate 03/06/19 97.9 79 18 117/68 Room Air 14:26 (84) Airway: Adequate mouth opening, Adequate thyromental dist Mallampati: Mallampati II Teeth: Normal Lung: Normal Heart: Normal ASA Physical Status ASA physical status: 2 Emergency: None Planned Anesthetic Neuraxial: Epidural Planned Pain Management Epidural Pre-operative Attestations Prior to commencing anesthesia and surgery, the patient was re-evaluated, there was verification of: *The patient's identity *The results of appropriate recent lab work and preoperative vital signs *The above evaluation not changing prior to induction *Anesthetic plan, risk benefits, alternative and complications discussed with patient/family; questions answered; patient/family understands, accepts and wishes to proceed. ZO POWER MD Mar 06, 2019 20:44
--- NOTE | 2019-03-06 20:45 | PAC ---
Date/Time of Note Date/Time of Note DATE: 03/06/19 TIME: 20:45 Post-Anesthesia Notes Post-Anesthesia Note Last documented vital signs Vital Signs Date Temp Pulse Resp B/P (MAP) Pulse Ox O2 O2 Flow FiO2 Time Delivery Rate 03/06/19 97.9 79 18 117/68 98 Room Air 20:46 (84) Activity: WNL Respiratory function: WNL Cardiovascular function: WNL Mental status: Baseline Pain reasonably controlled: Yes Hydration appropriate: Yes Nausea/Vomiting absent: Yes ZO POWER MD Mar 06, 2019 20:45
[2019-03-06] MEDS ORDERED: FENTAnyl 2MCG/ML-ROPIV 0.2% 100 ML BAG EPI SCH (21:00)
[2019-03-06] MEDS ORDERED: NALOXONE (0.4 MG/ML) INJ IV PRN (21:00)
[2019-03-06] MEDS: LACTATED RINGER'S 1,000 ML IV* SCH (23:25)
--- NOTE | 2019-03-06 23:56 | LDN ---
Date/Time of Note Date/Time of Note DATE: 03/06/19 TIME: 23:55 Delivery Summary Weeks of Gestation 39 weeks and 6 days Placenta Delivered: Spontaneously Meconium: none Episiotomy: No Laceration repair: Second degree perineal laceration repaired with 3-0 Vicryl. Anesthesia type: Epidural Estimated blood loss: 200 Sponge & Needle done & correct: Yes All needle counts correct: Yes Any foreign bodies felt in the: No Infant Delivery Information Sex Sex: male Apgars 1 Minute: 9 5 Minute: 9 Suctioning Nose & mouth suctioned at sean: No Delee suction performed: No Umbilical Cord Umbilical cord with: 3 Vessels Cord presentations: no nuchal cord Cord Blood was obtained: Yes Mother & Baby Disposition Disposition Mom & Baby to Maternity; Good: Yes NATALIYA MOFFETT MD Mar 06, 2019 23:56
[2019-03-07] VITALS (7 sets, daily range): BP systolic 108–129; BP diastolic 61–83; PULSE 68–83; RESP 17–19
[2019-03-07] MEDS ORDERED: METHYLERGONOVINE 0.2 MG INJ IM PRN (02:30)
[2019-03-07] MEDS ORDERED: ACETAMINOPHEN 325 MG TAB PO PRN (02:30)
[2019-03-07] MEDS ORDERED: DIBUCAINE 1% 30 GM OINT TOP PRN (02:30)
[2019-03-07] MEDS ORDERED: HYDROCODONE/APAP (5/325) TAB PO PRN (02:30)
[2019-03-07] MEDS ORDERED: OXYTOCIN 30 UNITS/LR 500 ML IV PRN (02:30)
[2019-03-07] MEDS ORDERED: CARBOPROST 250 MCG INJ IM PRN (02:30)
[2019-03-07] MEDS ORDERED: MISOPROSTOL 200 MCG TAB PR PRN (02:30)
[2019-03-07] MEDS ORDERED: BENZOCAINE 20% 56 ML SPRAY TOP PRN (02:30)
[2019-03-07] MEDS ORDERED: WITCH HAZEL/GLYCERIN PAD PR PRN (02:30)
[2019-03-07] MEDS: LACTATED RINGER'S 1,000 ML IV* SCH ×2 (03:35→18:21)
[2019-03-07] MEDS: IBUPROFEN 600 MG TAB PO SCH ×4 (05:41→23:34)
[2019-03-07] MEDS: SENNA/DOCUSATE NA (8.6MG/50MG) TAB PO SCH ×2 (08:57→21:20)
--- NOTE | 2019-03-07 19:59 | QN ---
Documentation Comment No complaint Afebrile VSS Fundus firm Lochia scant PPD #1 Stable Continue present care. NATALIYA MOFFETT MD Mar 07, 2019 19:59
[2019-03-08] MEDS: LACTATED RINGER'S 1,000 ML IV* SCH ×3 (02:21→20:52)
[2019-03-08 04:00] VITALS: BP 126/66; PULSE 80; RESP 18
[2019-03-08] MEDS: IBUPROFEN 600 MG TAB PO SCH ×3 (05:51→18:57)
[2019-03-08 08:00] VITALS: BP 115/65; PULSE 65; RESP 19
[2019-03-08] MEDS: SENNA/DOCUSATE NA (8.6MG/50MG) TAB PO SCH (08:36)
[2019-03-08] MEDS ORDERED: DIPHTH/TET/ACEL PERTUSS (ADULT) 0.5 ML VIAL IM* ONE (09:00)
[2019-03-08 17:12] VITALS: BP 112/65; PULSE 71; RESP 18
[2019-03-08 19:30] VITALS: BP 121/79; PULSE 78; RESP 18
--- NOTE | 2019-03-08 20:05 | DS ---
Date/Time of Note Date/Time of Note DATE: 03/08/19 TIME: 20:04 Obstetrical Discharge Record Final Diagnosis Final Diagnosis: Term delivered Vaginal Delivery Obstetrical Delivery: Spontaneous Complications Gestational Diabetes Induction: Yes Condition on Discharge Physical Assessment Voiding: Yes Bowel Movement: Yes Breast: Soft, non-tender, Filling Fundus: Firm Calf Tenderness: No Patient Condition: Stable NATALIYA MOFFETT MD Mar 08, 2019 20:05
--- NOTE | 2019-03-09 20:55 | DELSUM ---
Delivery Summary A-C Datetime Report Generated by CPN: 03/09/2019 20:55 DELIVERY PERSONNEL Sql Consultant: Rodas, Teri MATERNAL INFORMATION Delivery Anesthesia: Local; Epidural Medications in Delivery: Pitocin 30units in 500mL LR Delivery QBL (ml): 200 Placenta Cultured: No Maternal Complications: None Other Maternal Complications: GDM-diet controlled LABOR SUMMARY EDC: 03/07/2019 00:00 No. Babies in Womb: 1 Attempted: No Labor Anesthesia: Epidural LABOR INFORMATION Reason for Induction: Maternal Diabetes Onset of Labor: 03/06/2019 19:27 Complete Dilatation: 03/06/2019 23:09 Group B Beta Strep: Negative Antibiotics # of Doses: 0 Steroids Given: None Reason Steroids Not Administered: Not Applicable MEMBRANES Membranes Rupture Method: Artificial Rupture of Membranes: 03/06/2019 19:27 Length of Rupture (hr): 4.12 Amniotic Fluid Color: Clear Amniotic Fluid Amount: Moderate Amniotic Fluid Odor: Normal STAGES OF LABOR Stage 1 hr: 3 Stage 1 min: 42 Stage 2 hr: 0 Stage 2 min: 25 Stage 3 hr: 0 Stage 3 min: 3 Total Time in Labor hr: 4 Total Time in Labor min: 10 VAGINAL DELIVERY Episiotomy: None Laceration Extension: Second Degree Laceration Type: Perineal Laceration Repair: Yes Initial Vag Sponge Count: 10 Final Vag Sponge Count: 10 Initial Vag Sharps Count: 1 Final Vag Sharps Count: 2 Sponge Count Correct: Yes Sharps Count Correct: Yes Count Comment: 1 suture added 15 instruments BABY A INFORMATION Delivery Date/Time: 03/06/2019 23:34 Method of Delivery: Vaginal Born in Route : No : N/A Forceps: N/A Vacuum Extraction: N/A Shoulder Dystocia : No SHOULDER DYSTOCIA BABY A Infant Delivery Date/Time: 03/06/2019 23:34 PRESENTATION/POSITION BABY A Presentation: Cephalic Cephalic Presentation: Vertex Breech Presentation: N/A PLACENTA INFORMATION BABY A Placenta Delivery Time : 03/06/2019 23:37 Placenta Method of Delivery: Spontaneous Placenta Status: Delivered SCORES BABY A Heart Rate 1 min: >100 bpm Resp Effort 1 min: Good Cry Reflex Irritability 1 min: Cough/Sneeze/Pulls Away Muscle Tone 1 min: Active Motion Color 1 min: Body [place], Extremit Blue Resuscitation Effort 1 min: Tactile Stimulation SCORE 1 MIN: 9 Heart Rate 5 min: >100 bpm Resp Effort 5 min: Good Cry Reflex Irritability 5 min: Cough/Sneeze/Pulls Away Muscle Tone 5 min: Active Motion Color 5 min: Body [place], Extremit Blue Resuscitation Effort 5 min: N/A SCORE 5 MIN: 9 INFORMATION BABY A Gestational Age at Delivery: 39.6 Gestational Status: Full Term- 39- 40.6 Weeks Infant Outcome : Liveborn, with signs of life Infant Condition : Stable Infant Sex: Male IDENTIFICATION/MEDS BABY A ID Band Number: [id number] ID Band Location: Right Leg; Left Arm Sensor Applied: Yes Sensor Number: [id number] Sensor Location : Cord Clamp Vitamin K Given : Not Given Erythromycin Given: Not Given WEIGHT/LENGTH BABY A Infant Birthweight (gm): 3730 Weight (lb): 8 Weight (oz): 4 Length (in): 21.00 Length (cm): 53.34 CORD INFORMATION BABY A No. Cord Vessels: 3 Nuchal Cord : N/A Cord Blood Taken: Yes Infant Suction: Mouth; Nose ASSESSMENT BABY A Infant Complications: Multiple Variable Decels; Oligohydramnios Physical Findings at Delivery: Molding of the Head Infant Respirations: Appears Normal Patient Service Associate/ALS Called : No Infant Care By: NATALIE Esteban Transferred To: Remains with Mother
== END 2019-03-08 20:55 | disposition home or self-care (01) | DRG 807 ==
LOC: L-D 13:30 → PP1 03-07 02:02
PROVIDERS: ADMIT Obstetrics & Gynecology; ATTEND Obstetrics & Gynecology
PROC: 0KQM0ZZ Repair Perineum Muscle, Open Approach (ICD-10-PCS; 2019-03-06)
PROC: 10E0XZZ Delivery of Products of Conception, External Approach (ICD-10-PCS; principal; 2019-03-06 14:00)
DX: O70.1 Second degree perineal laceration during delivery (principal); Z37.0 Single live birth; Z3A.39 39 weeks gestation of pregnancy
CPT/HCPCS: 62322; 76815; 82947; 82962; 85025; 85610; 85730; 86592; 86850; 86900; 86901; 87340; 99464; J2590; J3010; J7120

== ENCOUNTER 2019-07-05 11:19 | Day surgery (SDC) | payer OTHER ==
[2019-07-01 15:12] VITALS: BMI 30.0
[2019-07-05] VITALS (12 sets, daily range): BP systolic 92–137; BP diastolic 52–79; PULSE 70–95; RESP 14–18; Ht 165.1 cm; Wt 100.9 kg
[~2019-07-05] VITALS: Ht 165.1 cm; Wt 100.9 kg
[~2019-07-05 11:19] MED LIST changes: +CEFAZOLIN 2 GM/50 ML (PMX) 50 ML IVPB SCH; +LACTATED RINGER'S 1,000 ML (ENTER RATE) IV SCH; +PREN-19 PO
[2019-07-05] MEDS ORDERED: SEVOFLURANE 15 MIN ONE (12:20)
[2019-07-05] MEDS ORDERED: CEFAZOLIN 1 GM INJ ONE (12:20)
[2019-07-05] MEDS ORDERED: PROPOFOL 20 ML ONE (12:24)
[2019-07-05] MEDS ORDERED: ROCURONIUM 50 MG INJ ONE (12:28)
[2019-07-05] MEDS ORDERED: DEXAMETHASONE 4 MG/ML 5 ML INJ ONE (12:35)
[2019-07-05] MEDS ORDERED: ONDANSETRON 4 MG INJ ONE ×2 (12:35→14:09)
[2019-07-05] MEDS ORDERED: morphine 10 MG INJ ONE (13:22)
[2019-07-05] MEDS ORDERED: BUPIVACAINE 0.5%/EPI (SDV) 30 ML INJ ONE (13:39)
[2019-07-05] MEDS ORDERED: SUGAMMADEX SODIUM 200 MG/2 ML VIAL IV ONE (13:56)
[2019-07-05] MEDS ORDERED: MEPERIDINE 25 MG INJ ONE (14:09)
[2019-07-05] MEDS ORDERED: DIPHENHYDRAMINE 50 MG INJ IV PRN (14:30)
[2019-07-05] MEDS ORDERED: morphine 2 MG INJ IV PRN (14:30)
[2019-07-05] MEDS ORDERED: HYDROmorphONE 1 MG/5 ML IV SYRINGE IV PRN ×3 (14:30)
[2019-07-05] MEDS ORDERED: ALBUTEROL 0.083% (NEB) 2.5 MG/3 ML AMP HHN PRN (14:30)
[2019-07-05] MEDS ORDERED: MIDAZOLAM 1 MG/ML 2 ML INJ IV PRN (14:30)
[2019-07-05] MEDS ORDERED: hydrALAzine 20 MG INJ IV PRN (14:30)
[2019-07-05] MEDS ORDERED: MEPERIDINE 25 MG INJ IV PRN (14:30)
[2019-07-05] MEDS ORDERED: KETOROLAC 30 MG INJ IV PRN ×2 (14:30)
[2019-07-05] MEDS ORDERED: FENTAnyl 50 MCG/ML VIAL IV PRN ×3 (14:30)
[2019-07-05] MEDS ORDERED: ONDANSETRON 4 MG INJ IV PRN ×2 (14:30)
[2019-07-05] MEDS ORDERED: EPHEDrine 25 MG/5 ML SYG IV PRN (14:30)
[2019-07-05] MEDS ORDERED: LABETALOL HCL 20MG INJ IV PRN (14:30)
[2019-07-05] MEDS ORDERED: METOCLOPRAMIDE 10 MG INJ IV PRN (14:30)
[2019-07-05] MEDS ORDERED: HYDROCODONE/APAP (5/325) TAB PO PRN ×2 (14:30)
== END 2019-07-05 16:22 | disposition home or self-care (01) ==
LOC: SDS 11:19
PROVIDERS: ATTEND Obstetrics & Gynecology
DX: Z30.2 Encounter for sterilization (principal)
CPT/HCPCS: 58600; 84703; 85025; 86850; 86900; 86901; 88302; J0690; J1100; J1170; J1885; J2175; J2270; J2405; J3010; Z7512; Z7610